=== PATIENT | female | born 2000 | race Caucasian/White ===

== ENCOUNTER 2021-07-09 12:27 | Emergency (ER) | payer MEDICAID ==
[~2021-07-09] VITALS: Ht 157.5 cm; Wt 101.0 kg
[2021-07-09 12:31] VITALS: BP 129/83
[2021-07-09] MEDS ORDERED: CEPH500T MT (13:32)
[2021-07-09] MEDS ORDERED: IBUP-2029 PO (13:32)
== END 2021-07-09 13:40 | disposition home or self-care (01) ==
LOC: ER 12:27
DX: L02.416 Cutaneous abscess of left lower limb (principal); L02.415 Cutaneous abscess of right lower limb
CPT/HCPCS: 99283